=== PATIENT | female | born 1955 | race Caucasian/White ===

== ENCOUNTER 2017-07-23 02:27 | Inpatient (IN) | payer OTHER ==
[~2017-07-23] VITALS: Ht 162.6 cm; Wt 145.2 kg
[~2017-07-23 02:27] MED LIST: 8 HOUR650 MG PO; COLACE100 M1 PO; IRON325 M3 PO; MELOXICAM15 M1 PO; TRAMADOL HCL50 M1 PO; ZESTRIL20 M1 PO
--- NOTE | 2017-07-23 11:51 | Admission Core Measures ---
Acute Coronary Syndrome (CM) ACS Core Measures Acute Coronary Syndrome Diagnosis No Congestive Heart Failure (NEW) CHF Core Measures Congestive Heart Failure Diagnosis No Cerebrovascular Accident (NEW) CVA Core Measures CVA/TIA Diagnosis No Venous Thromboembolism VTE Core Brad (View Protocol) VTE Risk Factors Surgery No Mechanical VTE Prophylaxis d/t N/A MechProphylax Ordered No VTE Pharm Prophylaxis d/t NA PharmProphylax ordered Problem List As ranked by this Provider includes Assessment & Plan 1. Primary osteoarthritis of right knee HOME MEDS Home Med List Acetaminophen (8 Hour) 650 MG TABLET.ER 1 TAB PO PRN PAIN (Reported) Docusate Sodium (Colace) 100 MG CAPSULE 1 CAP PO DAILY STOOL SOFTENER ( Reported) Ferrous Sulfate (IRON) 325 MG (65 MG IRON) TABLET 1 TAB PO DAILY SUPPLEMENT ( Reported) Lisinopril (Zestril) 20 MG TABLET 2 TAB PO DAILY BP (Reported) Meloxicam 15 MG TABLET 1 TAB PO DAILY PAIN/INFLAMMATION (Reported) Tramadol HCl 50 MG TABLET 1 TAB PO Q6P PRN PAIN (Reported)
--- NOTE | 2017-07-23 11:55 | Surgical Discharge Summary ---
Visit Information Visit Dates Admission Date: 07/23/17 Discharge Date: 07/26/2017 History of Present Illness Chief Complaint: Right knee pain Surgical History Pertinent Surgical History: knee replacement (Right on 07/23/17) Review of Systems: Refer to H&P Hospital Course Course Attending Physician: Carlo Rose MD Primary Care Physician: Jazz Crabtree MD Hospital Course: Patient was admitted to the hospital for an elective total joint replacement. The procedure was tolerated well and patient was transferred to a general surgical floor. Diet was advanced and tolerated, and the patient voided spontaneously. The patient was evaluated and treated by physical therapy. At the time of hospital discharge, the vital signs were stable, neurovascular status was intact and pain was controlled with the use of oral pain medications. Allergies: Coded Allergies: celecoxib (From CELEBREX) (VOMITING 07/19/17) Significant Procedures: Right total knee replacement on 07/23/17 Disposition Summary Disposition Principal Diagnosis: Primary osteoarthritis, right knee Additional Diagnosis: S/p right total knee replacement Discharge Disposition: SNF Discharge Instructions General Discharge Information Code Status: Full Code Patient's Diet: Regular Patient's Activity: WBAT, RW as needed Follow-Up Instructions/Appts: Follow up in [address] Rose Medications at Discharge Discharge Medications: Stop taking the following medications: Meloxicam (Meloxicam) 15 MG TABLET ORAL DAILY Docusate Sodium (Colace) 100 MG CAPSULE ORAL DAILY Continue taking these medications: Lisinopril (Zestril) 20 MG TABLET 2 Tablet ORAL DAILY Tramadol HCl (Tramadol HCl) 50 MG TABLET 1 Tablet ORAL EVERY SIX HOURS NEEDED as needed for PAIN Acetaminophen (8 Hour) 650 MG TABLET.ER 1 Tablet ORAL EVERY SIX HOURS NEEDED as needed for MILD PAIN Instructions: DO NOT EXCEED 4GRAMS OF ACETAMINOPHEN PER DAY Ferrous Sulfate (IRON) 325 MG (65 MG IRON) TABLET 1 Tablet ORAL DAILY Start taking the following new medications: Apixaban (Eliquis) 2.5 MG TABLET 1 Tablet ORAL TWICE DAILY Qty = 60 No Refills Oxycodone HCl/Acetaminophen (Percocet 5-325 MG Tablet) 5 MG-325 MG TABLET 1-2 Tablet ORAL EVERY 4 HOURS NEEDED as needed for PAIN Qty = 30 No Refills Docusate Sodium (Docusate Sodium) 100 MG CAPSULE 1 Capsule ORAL TWICE DAILY Qty = 14 No Refills Polyethylene Glycol 3350 (Miralax) 17 GRAM/DOSE POWDER 1 Packet ORAL DAILY Qty = 7 No Refills Sennosides/Docusate Sodium (Senna Plus Tablet) 8.6 MG-50 MG TABLET 2 Tablet ORAL AT BEDTIME as needed for CONSTIPATION Qty = 14 No Refills
--- NOTE | 2017-07-23 13:07 | Operative Report ---
Operative/Inv Procedure Report Surgery Date: 07/23/17 Name of Procedure: Right total knee arthroplasty Pre-Operative Diagnosis: Primary osteoarthritis right knee Post-Operative Diagnosis: Same Estimated Blood Loss: less than 50ml Surgeon/Electric Hoist Operator: Milton CASILLAS,Carlo PANDYA Anesthesia: general endotracheal tube IV Fluids: See anesthesia record Implants: DepUY attune total knee system size 6 femur size 6 tibia 9 mm polyethylene and 32 patellar button Drains: None Specimens: Bone to pathology Tourniquet: 84 minutes Complications: None Condition: Stable Operative Indication: Patient's a 61-year-old female severe osteoarthritis and degenerative changes of the right knee. She failed conservative treatment is indicated for total knee arthroplasty. Risks and benefits the procedure discussed the patient detail and she wished to proceed. Skilled set hands was necessary provided by physician assistant county attorney Dakota Gtz weighted with assembly of the components as well as limb positioning and retraction due to the patient's morbid obesity second set of hands was absolutely necessary and crucial to the case. Operative/Procedure Note Note: Once informed consent was obtained and the correct limb was identified patient brought to operating room placed on table supine position. After administration of general endotracheal anesthesia patient's right leg had a thigh tourniquet placed, a Hansen catheter was placed in the right lower extremity is prepped and draped usual sterile fashion. To begin the procedure standard midline incision made for total knee arthroplasty. Surgeon was carried down through skin and subcutaneous tissue and fat. A medial parapatellar arthrotomy is performed and the patella was everted. The fat pad is removed from the patellar tendon. Patellar thickness was measured to be 25 mm and 10 mm's of bone was resected off the patella. Patella sized to be size 32 patella on the jig for the 32 patella was placed on patella and the lug holes were drilled. At this point patella was retracted laterally and protected and knee was placed in flexion. Z retractors were placed to protect the medial and lateral collateral ligaments. The lateral medial menisci were resected sharply with a knife. The cruciate ligaments were resected. The intrinsic canal of the femur was entered with a step drill and the intramedullary distal femoral cutting guide was placed. A plan resection of 10 mm's of bone off the distal femur and a 5 valgus cut was made. Once this was done the femur was sized and sized to be a size 6 femur. A size 6 4-in-1 cutting block was placed in the distal femur and anterior, posterior, chamfer cuts were made without complication. Next the cutting block was removed and the box cut guide was placed on the femur. Box cut was made for the posterior stabilized knee. At this point is insurance removed and we turned our attention to the tibia. Intramedullary canal of the tibia was identified and opened with a step drill. An intramedullary cutting guide for the tibia was placed down each medullary canal. A plan resection of 4 mm of bone off the lateral side of the knee was was done. This was passed off as specimen. The tibial was then sized to be a size 6 tibia. Trial reduction was done with a 6 tibia 6 femur and a 9 mm polyethylene insert. Knee had full extension and was stable to varus and valgus stress at 0 and 60. The patella was slightly lateral and so a lateral release performed to improve patellar tracking. The rotation of the tibial component was marked and the tibial component was pinned in place and the keel cut was made. Once this was done on insurance removed and composite removed and the knee was pulse lavaged. Cement was mixed on the back table. The components were then cemented in place with the tibial component cemented first followed by the femoral component and the patellar button. All excess cement cement was removed with curettes. The knee is placed in extension while cement hardened. Again the knee was taken through a range of motion found be stable. A 9 mm polyethylene insert was opened and locked onto the tibial tray. The knee was pulse lavaged the joint was released. Any bleeding was stopped with full electrocautery. The arthrotomy is closed with #1 Vicryl interrupted sutures and subcutaneous tissues closed #1 Vicryl and 2-0 Vicryl interrupted sutures and the skin was closed was greg. Sterile dressings applied patient was awakened taken recovery in stable fashion.
--- NOTE | 2017-07-23 14:51 | Cons- Medical ---
Zack Noe 07/23/17 1450: General Information and HPI Consulting Request Date of Consult: 07/23/17 Requested By: Milton CASILLAS,Carlo Porras Reason for Consult: Hypertension Source of Information: patient, family, old records Exam Limitations: no limitations History of Present Illness: Mrs. Magaña is a 62 yo lady with PMHx. of HTN, chronic back pain, OA presented to for elective Rt. knee replacement. Patient was seen and examined she didn't offer any complaint. Review of system was negative, no urinary symptoms. Allergies/Medications Allergies: Coded Allergies: celecoxib (From CELEBREX) (VOMITING 07/19/17) Home Med List: Acetaminophen (8 Hour) 650 MG TABLET.ER 1 TAB PO PRN PAIN (Reported) Docusate Sodium (Colace) 100 MG CAPSULE 1 CAP PO DAILY STOOL SOFTENER ( Reported) Ferrous Sulfate (IRON) 325 MG (65 MG IRON) TABLET 1 TAB PO DAILY SUPPLEMENT ( Reported) Lisinopril (Zestril) 20 MG TABLET 2 TAB PO DAILY BP (Reported) Meloxicam 15 MG TABLET 1 TAB PO DAILY PAIN/INFLAMMATION (Reported) Tramadol HCl 50 MG TABLET 1 TAB PO Q6P PRN PAIN (Reported) Current Medications: Current Medications Sig/Ricky Start time Last Medication Dose Route Stop Time Status Admin Acetaminophen 0 .STK-MED ONE 07/23 0911 DC PO Acetaminophen 650 MG ONCE 07/23 0000 DC PO 07/23 235 Apixaban 2.5 MG BID 07/24 1000 AC PO Celecoxib 400 MG DAILY 07/24 1000 CAN PO Dexamethasone 0 .STK-MED ONE 07/23 0911 DC .ROUTE Dexamethasone 10 MG ONCE 07/23 0000 DC IV 07/23 2359 Dextrose/Lactated 1,000 ML Q13H 07/23 1800 DC 07/23 Ringer's IV 1807 Docusate Sodium 100 MG BID 07/23 1030 AC PO Fentanyl Citrate 250 MCG .STK-MED ONE 07/23 1113 DC IM 07/23 111 Fentanyl Citrate 200 MCG .STK-MED ONE 07/23 0939 DC IM 07/23 0940 Gabapentin 0 .STK-MED ONE 07/23 0912 DC PO Gabapentin 300 MG ONCE 07/23 0000 DC PO 07/23 2359 Ketamine HCl 50 MG .STK-MED ONE 07/23 1113 DC IM 07/23 1114 Lisinopril 40 MG DAILY 07/23 1600 AC PO Midazolam HCl 2 MG .STK-MED ONE 07/23 0939 DC IM 07/23 0940 Morphine Sulfate 2 MG Q3P PRN 07/23 1800 DC IV Morphine Sulfate 4 MG Q3P PRN 07/23 1800 DC IV Ondansetron HCl 4 MG Q6 07/23 1030 AC 07/23 IV 2341 Ondansetron HCl 4 MG .STK-MED ONE 07/23 0939 DC IM 07/23 0940 Oxycodone HCl 10 MG ONCE 07/23 0000 DC PO 07/23 2359 Oxycodone/ 1 TAB Q4P PRN 07/23 1800 AC Acetaminophen PO Oxycodone/ 2 TAB Q4P PRN 07/23 1800 AC Acetaminophen PO Polyethylene Glycol 17 GM DAILY 07/23 1030 AC PO Ropivacaine 500 ML ONCE ONE 07/23 1045 DC ON-Q Ball 1 BAG INJ 07/23 1046 Scopolamine HBr 0 .STK-MED ONE 07/23 0911 DC TOP Scopolamine HBr 1 PAT ONCE 07/23 0000 DC TOP 07/23 2359 Senna/Docusate Sodium 2 TAB AT BEDTIME 07/23 1030 AC PO Tramadol HCl 50 MG Q4P PRN 07/23 2100 AC 07/23 PO 2107 Tranexamic Acid 2,000 MG .STK-MED ONE 07/23 0939 DC IV 07/23 0940 Vancomycin HCl 2,000 MG ONCE ONE 07/23 2200 CAN Dextrose/Water 250 ML IV 07/23 2259 Vancomycin HCl 2,000 MG 2200 07/23 2200 DC 07/23 Dextrose/Water 500 ML IV 07/23 2359 2134 Vancomycin HCl 2,000 MG ONCE 07/23 0000 DC Sodium Chloride 500 ML IV 07/23 2359 Past History Surgical History Surgical History: knee replacement (Right on 07/23/17) Psychosocial History Smoking Status: Unknown If Ever Smoked Exam & Diagnostic Data Last 24 Hrs of Vital Signs/I&O Vital Signs Date Time Temp Pulse Resp B/P B/P Pulse O2 O2 Flow FiO2 Mean Ox Delivery Rate 07/24 0635 98.4 72 20 112/70 98 Room Air 07/24 0409 98.4 72 20 112/70 98 Room Air 07/24 0036 98.2 64 20 130/80 96 Room Air 07/23 2206 98.6 81 20 138/80 94 04/04 2020 98.3 80 18 122/80 97 Room Air 07/23 1808 98.7 78 18 140/80 97 Room Air Intake & Output 07/24 0800 07/24 0000 07/23 1600 Intake Total 1105 1175 Output Total 1000 500 Balance 105 675 Intake, IV 625 375 Intake, Oral 480 800 Output, Urine 1000 500 Patient 320 lb Weight Last 24 Hrs of Labs/Alcides: Laboratory Tests 07/24/17 0715: Sodium Pending, Potassium Pending, Chloride Pending, Carbon Dioxide Pending, Anion Gap Pending, BUN Pending, Creatinine Pending, BUN/Creatinine Ratio Pending , CBC w Diff Pending, WBC Pending, RBC Pending, Hgb Pending, Hct Pending, MCV Pending, MCH Pending, MCHC Pending, RDW Pending, Plt Count Pending, MPV Pending Assessment/Plan Assessment/Plan Mrs. Magaña is a 62 yo lady with PMHx. of HTN, chronic back pain, OA presented to for elective knee replacement. Assessment and Plan: #S/P Rt. Knee replacement: Pain management per surgical team PT #Hx. of HTN: Currently is well controlled, continue her home med. Lisinopril DVT ppx Problem List: 1. Primary osteoarthritis of right knee Consult Acknowledgment - Thank you for your consult request. Filipe Bradley MD 07/23/17 1973: Assessment/Plan Consult Acknowledgment - Thank you for your consult request. Attending Review Statement Attending Statement Attending Statement: examined this patient, discussed with family, reviewed EMR data (avail), discussed with nursing, amended to note Attending Assessment/Plan: The patient is a 62 yo female with h/o obesity, HTN, chronic back pain, OA we were requested to see post operatively s/p right TKR today. In the PACU she was comfortable, alert and w/o complaints. BP was noted to be elevated at 170/80 and Lisinopril was given (her usual medication). She denied any chest pain, dyspnea, abdominal pain or other symptoms. As part of her pre-op medical evaluation with Dr. Rg she was noted to have asymptomatic bacteruria and was treated with an antibiotic. E coli is sensitive also to Ancef which patient is receiving maru -operatively for orthopedic procedure (as per written note in PACU, however Vanco listed on med list on floor?). She denied any fever, dysuria, frequency, back/pelvic pain, etc. Physical Exam: VS: T 98.6, P 68, R 16, BP 170/80, PO 98% RA in PACU HEENT: eyes- PERRLA, EOMI kinjal- moist mucosa, w/o lesions Neck: no JVD/bruits Chest: clear Cor: RRR nl S1, S2 w/o murm Abd: BS+, soft, NT, - HSM Ext: S/P Right TKR, no edema Impression/Plan: #S/P Right TKR- for OA- doing well post operatively in PACU. Plan: Post op care as per orthopedics. To begin Eliquis for DVT prophylaxis. #Essential HTN- BP was slightly elevated post op and given Lisinopril with decrease in BP. Plan: Continue Lisinopril and follow BP. #Asymptomatic Bacteruria- found on routine pre-op exam. No clinical evidence for infection. The patient stated she had received an antibiotic for this (?Ancef listed on written note in PACU, however Vanco listed on electronic record. Plan: No need to treat at present, however will monitor for any symptoms.
--- NOTE | 2017-07-23 16:11 | PN- Orthopedic ---
Subjective Subjective: POSTOP CHECK Patient reports pain is well controlled. Tolerating ice chips. Reports dry mouth and numbness in her right lower leg, which is improving. Offers no other complaints. Objective Vital Signs and I&Os Vitals - afebrile, BP 170/80, HR 68, RR 16, O2 sat 98% on RA Physical Exam: Gen - resting comfortably in PACU in NAD Lungs - CTAB Cardio- S1S2 noted Abd - soft, NT Ext - RLE dressing with kiet c/d/i, ice and onQ in place, moves all extremities, distal sensory and motor intact, soft compartment, alps in place, no edema or calf tenderness B/L Assessment/Plan Assessment/Plan 62 F POD 0 s/p R TKR, hypertensive postop PT eval, WBAT Advance to regular diet, IVF Postop op abx - vanco Pain regimen prn Antiemetics on board Home med on board - resume lisinopril now DVT ppx - eliquis bid in am, alps Encourage IS Dressing change POD2 D/c ceja in am Core Measures Venous Thromboembolism VTE Risk Factors Surgery No Mechanical VTE Prophylaxis d/t N/A MechProphylax Ordered No VTE Pharm Prophylaxis d/t NA PharmProphylax ordered
[2017-07-23 18:08] VITALS: BP 140/80
[2017-07-23 20:20] VITALS: BP 122/80
[2017-07-23 22:06] VITALS: BP 138/80
[2017-07-24 00:36] VITALS: BP 130/80
[2017-07-24 04:09] VITALS: BP 112/70
--- NOTE | 2017-07-24 07:26 | PN- Orthopedic ---
Subjective Subjective: No acute overnight events. No chest pain, shortness of breath, difficulty breathing. Nausea resolving. Pain controlled presently. Jade dc'd. Has yet to ambulate. Objective Vital Signs and I&Os Vital Signs Date Time Temp Pulse Resp B/P B/P Pulse O2 O2 Flow FiO2 Mean Ox Delivery Rate 07/24 408 98.4 72 20 112/70 98 Room Air 07/24 0036 98.2 64 20 130/80 96 Room Air 07/23 2206 98.6 81 20 138/80 94 07/23 2020 98.3 80 18 122/80 97 Room Air 07/23 1808 98.7 78 18 140/80 97 Room Air Intake & Output 07/24 0807/24 0000 07/23 1600 07/23 0807/23 0000 07/22 1600 Intake Total 1105 1175 Output Total 1000 500 Balance 105 675 Intake, IV 625 375 Intake, Oral 480 800 Output, Urine 1000 500 Patient 320 lb Weight Physical Exam: General: AAO x3, no distress Cards: RRR, s1s2 Pulm: C T A ABD: non-tender, non-distended Extremties: NeuroVascular intact. Dressing dry. On Q in place. Calves soft bilaterally. Assessment/Plan Assessment/Plan This is a 62 year old, POD 1, s/p R TKR -DC iv fluids Eliquis 2.5 bid for dvt ppx OOB, WBAT, Knee immobilzer if unstable Continue current pain regimen Anticipate dc to str in 3 days Will discuss with Dr. Laureano Core Measures Venous Thromboembolism VTE Risk Factors Surgery No Mechanical VTE Prophylaxis d/t N/A MechProphylax Ordered No VTE Pharm Prophylaxis d/t NA PharmProphylax ordered
[2017-07-24 07:35] VITALS: BP 112/70
[2017-07-24 08:21] LABS: ABSOLUTE BASOPHIL COUNT 0 /CUMM (0.0-0.2); ABSOLUTE EOSINOPHIL COUNT 0 /CUMM (0.0-0.7); ABSOLUTE GRANULOCYTE CT 7.4 /CUMM (1.4-6.5); ABSOLUTE LYMPH COUNT 1.2 /CUMM (1.2-3.4); ABSOLUTE MONOCYTE COUNT 0.7 /CUMM (0.10-0.60); BASOPHIL % 0.3 % (0.0-2.0); EOSINOPHIL % 0.1 % (0-5); GRANULOCYTE % 79.8 % (42.2-75.2); HEMATOCRIT 35.1 % (37-47); MEAN CORPUSCULAR HGB 31.2 PG (27.0-31.0); MEAN CORPUSCULAR HGB CONC 34.3 G/DL (33.0-37.0); MEAN CORPUSCULAR VOLUME 91.1 FL (81.0-99.0); MEAN PLATELET VOLUME 8.6 FL (7.4-10.4); PLATELET COUNT 164 /CUMM (130-400); RBC DISTRIBUTION WIDTH 12.8 % (11.5-14.5); RED BLOOD CELL CT 3.86 /CUMM (4.20-5.40); WHITE BLOOD CELL COUNT 9.3 /CUMM (4.8-10.8)
--- NOTE | 2017-07-24 08:32 | PN- Medicine Consult ---
[facility]32: Assessment/PlanMedical Consult Assessment/Plan Assessment: Mrs. Magaña is a 62 yo lady with PMHx. of HTN, chronic back pain, OA presented to for elective Rt. knee replacement. Today D1 Plan: Mrs. Magaña is a 62 yo lady with PMHx. of HTN, chronic back pain, OA presented to for elective knee replacement. Assessment and Plan: #S/P Rt. Knee replacement: * Pain management per surgical team * PT #Hx. of HTN: * Currently is well controlled, continue her home med. Lisinopril #DVT ppx: Aliquis 2.5mg BID #Throat itch: * Lozenges ordered Problem List: 1. Primary osteoarthritis of right knee 2. Knee joint replacement status Subjective Subjective: Patient seen and examined, offer no complaint except she has sore itch, she was requesting Lozenges. Vitals stable, no events over night, she walk to the bathroom with moderate pain. Review of Systems Constitutional: Reports: no symptoms. EENTM: Reports: no symptoms. Cardiovascular: Reports: no symptoms. Respiratory: Reports: no symptoms. Gastrointestinal: Reports: no symptoms. Genitourinary: Reports: no symptoms. Musculoskeletal: Reports: joint pain. Neurological/Psychological: Reports: no symptoms. Hematologic/Endocrine: Reports: no symptoms. Objective Last 24 Hrs of Vital Signs/I&O Vital Signs Date Time Temp Pulse Resp B/P B/P Pulse O2 O2 Flow FiO2 Mean Ox Delivery Rate 07/24 0735 98.4 72 20 112/70 98 Room Air 07/24 0409 98.4 72 20 112/70 98 Room Air 07/24 0036 98.2 64 20 130/80 96 Room Air 07/23 2206 98.6 81 20 138/80 94 07/23 2020 98.3 80 18 122/80 97 Room Air 07/23 1808 98.7 78 18 140/80 97 Room Air Intake & Output 07/24 1600 07/24 0800 07/24 0000 Intake Total 1105 1175 Output Total 1000 500 Balance 105 675 Intake, IV 625 375 Intake, Oral 480 800 Output, Urine 1000 500 Patient 320 lb Weight Physical Exam General Appearance: well developed/nourished, no apparent distress, alert, awake , comfortable Head: atraumatic, normal appearance Neck: normal inspection, supple, full range of motion Cardiovascular: regular rate/rhythm, normal peripheral pulses Respiratory: normal breath sounds, chest non-tender, no respiratory distress Abdomen: normal bowel sounds, soft, non-tender Extremities: normal inspection, no edema Current Medications: Current Medications Sig/Ricky Start time Last Medication Dose Route Stop Time Status Admin Acetaminophen 650 MG ONCE 07/23 0000 DC PO 07/23 2359 Apixaban 2.5 MG BID 07/24 1000 AC PO Celecoxib 400 MG DAILY 07/24 1000 CAN PO Dexamethasone 10 MG ONCE 07/23 0000 DC IV 07/23 2359 Dextrose/Lactated 1,000 ML Q13H 07/23 1800 DC 07/23 Ringer's IV 1807 Docusate Sodium 100 MG BID 07/23 1030 AC PO Fentanyl Citrate 250 MCG .STK-MED ONE 07/23 1113 DC IM 07/23 1114 Gabapentin 300 MG ONCE 07/23 0000 DC PO 07/23 2359 Ketamine HCl 50 MG .STK-MED ONE 07/23 1113 DC IM 07/23 1114 Lisinopril 40 MG DAILY 07/23 1600 AC PO Morphine Sulfate 2 MG Q3P PRN 07/23 1800 DC IV Morphine Sulfate 4 MG Q3P PRN 07/23 1800 DC IV Ondansetron HCl 4 MG Q6 07/23 1030 AC 07/23 IV 2341 Oxycodone HCl 10 MG ONCE 07/23 0000 DC PO 07/23 2359 Oxycodone/ 1 TAB Q4P PRN 07/23 1800 AC 07/24 Acetaminophen PO 1012 Oxycodone/ 2 TAB Q4P PRN 07/23 1800 AC Acetaminophen PO Polyethylene Glycol 17 GM DAILY 07/23 1030 AC PO Ropivacaine 500 ML ONCE ONE 07/23 1045 DC ON-Q Ball 1 BAG INJ 07/23 1046 Scopolamine HBr 1 PAT ONCE 07/23 0000 DC TOP 07/23 2359 Senna/Docusate Sodium 2 TAB AT BEDTIME 07/23 1030 AC PO Tramadol HCl 50 MG Q4P PRN 07/23 2100 AC 07/24 PO 0819 Vancomycin HCl 2,000 MG ONCE ONE 07/23 2200 CAN Dextrose/Water 250 ML IV 07/23 2259 Vancomycin HCl 2,000 MG 2200 07/23 2200 DC 07/23 Dextrose/Water 500 ML IV 07/23 2359 2134 Vancomycin HCl 2,000 MG ONCE 07/23 0000 DC Sodium Chloride 500 ML IV 07/23 5919 Results Last 24 Hrs Lab/Alcides Results: Laboratory Tests 07/24/17 0715: Anion Gap 9, Estimated GFR > 60, BUN/Creatinine Ratio 20.0, CBC w Diff NO MAN DIFF REQ, RBC 3.86 L, MCV 91.1, MCH 31.2 H, MCHC 34.3, RDW 12.8, MPV 8.6, Gran % 79.8 H, Lymphocytes % 12.7 L, Monocytes % 7.1, Eosinophils % 0.1, Basophils % 0.3, Absolute Granulocytes 7.4 H, Absolute Lymphocytes 1.2, Absolute Monocytes 0.7 H, Absolute Eosinophils 0, Absolute Basophils 0 Microbiology 07/23 1050 URINE ROUT: Urine Culture - RES Filipe Bradley MD 07/24/17 2142: Attending MD Review Statement Attending Sign Off Attending Cosign Statement: I have: examined this patient, reviewed aval EMR data, personally reviewd images, discussd w/resident/PA/CHUCK WAGON COOK, discussed mgmt plan w/pt, agreed w/resident/ PA/CHUCK WAGON COOK, amended to note. Other Findings: The patient was seen and discussed with resident. Agree with the plan of care as outlined.
[2017-07-24 14:33] VITALS: BP 110/70
[2017-07-24 21:58] VITALS: BP 130/70
[2017-07-25 06:57] VITALS: BP 130/72
--- NOTE | 2017-07-25 07:54 | PN- Orthopedic ---
Subjective Subjective: POD #2 s/p right TKR. Resting in bed. Fearful to void due to pain in right leg. Worked with PT yesterday, recommending STR upon discharge. Passing flatus , no BM yet. Objective Vital Signs and I&Os Vital Signs Date Time Temp Pulse Resp B/P B/P Pulse O2 O2 Flow FiO2 Mean Ox Delivery Rate / 0657 98.4 71 20 130/72 92 Room Air / 2158 98.9 72 20 130/70 98 Room Air 07/24 1435 Room Air 04/ 1433 99.3 72 18 110/70 98 Room Air 04/ 1021 72 112/70 Intake & Output 07/25 0807/25 0000 07/24 1600 07/24 0807/24 0000 07/23 1600 Intake Total 240 1105 1175 Output Total 200 1000 500 Balance 40 105 675 Intake, IV 625 375 Intake, Oral 240 480 800 Output, Urine 200 1000 500 Patient 320 lb Weight Physical Exam: Gen: AAOx3 in NAD Cor: S1+S2+ Lungs: CTA doris Abd: soft Ext: right lower extremity dressing removed, replaced. Incision C/D/I with greg. No surrounding erythema or ecchymosis. Able to dorsiflex/plantar flex. palpable DP pulse. Sensation/motor exam grossly intact. Current Medications: Current Medications Sig/Ricky Start time Last Medication Dose Route Stop Time Status Admin Apixaban 2.5 MG BID 07/24 1000 AC 07/24 PO 2139 Benzocaine/Menthol 1 JAKE Q2P PRN 07/24 1215 AC PO Bisacodyl 10 MG ONCE ONE 07/25 0800 UNVr RI 07/25 0801 Docusate Sodium 100 MG BID 07/23 1030 AC 04 PO 2139 Lisinopril 40 MG DAILY 07/23 1600 AC 07/24 PO 1021 Non-Formulary 0 SEE ADMIN CRITERIA 07/24 1215 CAN Medication ANY Ondansetron HCl 4 MG Q6 07/23 1030 AC 07/24 IV 1417 Oxycodone/ 1 TAB Q4P PRN 07/23 1800 AC 07/24 Acetaminophen PO 1012 Oxycodone/ 2 TAB Q4P PRN 07/23 1800 AC 07/25 Acetaminophen PO 0700 Patient Medication 1 ED ONE ONE 07/24 1045 DC 07/24 Teaching ED 07/24 1042020 Polyethylene Glycol 17 GM DAILY 07/23 1030 AC 07/24 PO 1021 Senna/Docusate Sodium 2 TAB AT BEDTIME 07/23 1030 AC 07/24 PO 2139 Tramadol HCl 50 MG Q4P PRN 07/23 2100 AC 07/24 PO 0819 Results Last 48 Hours of Labs: Laboratory Tests 07/24 07 Chemistry Sodium (137 - 145 mmol/L) 141 Potassium (3.5 - 5.1 mmol/L) 4.5 Chloride (98 - 107 mmol/L) 105 Carbon Dioxide (22 - 30 mmol/L) 27 Anion Gap (5 - 16) 9 BUN (7 - 17 mg/dL) 16 Creatinine (0.5 - 1.0 mg/dL) 0.8 Estimated GFR (>60 ml/min) > 60 BUN/Creatinine Ratio (7 - 25 %) 20.0 Hematology CBC w Diff NO MAN DIFF REQ WBC (4.8 - 10.8 /CUMM) 9.3 RBC (4.20 - 5.40 /CUMM) 3.86 L Hgb (12.0 - 16.0 G/DL) 12.1 Hct (37 - 47 %) 35.1 L MCV (81.0 - 99.0 FL) 91.1 MCH (27.0 - 31.0 PG) 31.2 H MCHC (33.0 - 37.0 G/DL) 34.3 RDW (11.5 - 14.5 %) 12.8 Plt Count (130 - 400 /CUMM) 164 MPV (7.4 - 10.4 FL) 8.6 Gran % (42.2 - 75.2 %) 79.8 H Lymphocytes % (20.5 - 51.1 %) 12.7 L Monocytes % (1.7 - 9.3 %) 7.1 Eosinophils % (0 - 5 %) 0.1 Basophils % (0.0 - 2.0 %) 0.3 Absolute Granulocytes (1.4 - 6.5 /CUMM) 7.4 H Absolute Lymphocytes (1.2 - 3.4 /CUMM) 1.2 Absolute Monocytes (0.10 - 0.60 /CUMM) 0.7 H Absolute Eosinophils (0.0 - 0.7 /CUMM) 0 Absolute Basophils (0.0 - 0.2 /CUMM) 0 Assessment/Plan Assessment/Plan A: POD #2 s/p right TKR; AVSS Plan: Must void this morning. Await BM. Dulcolax RI ordered. Continue Eliquis x 6 weeks post op. Onq pump removed. STR tomorrow. Core Measures Venous Thromboembolism VTE Risk Factors Surgery No Mechanical VTE Prophylaxis d/t N/A MechProphylax Ordered No VTE Pharm Prophylaxis d/t NA PharmProphylax ordered
--- NOTE | 2017-07-25 08:43 | PN- Medicine Consult ---
Zack Noe 07/25/17 0843: Assessment/PlanMedical Consult Assessment/Plan Assessment: Mrs. Magaña is a 62 yo lady with PMHx. of HTN, chronic back pain, OA presented to for elective Rt. knee replacement. Today D2 Plan: Mrs. Magaña is a 62 yo lady with PMHx. of HTN, chronic back pain, OA presented to for elective knee replacement. Assessment and Plan: #S/P Rt. Knee replacement: * Pain management per surgical team * PT #Hx. of HTN: * Currently is well controlled, continue her home med. Lisinopril #DVT ppx: Aliquis 2.5mg BID #Throat itch: * Lozenges ordered Problem List: 1. Knee joint replacement status Subjective Subjective: seen and examined stable, no events overnight Objective Last 24 Hrs of Vital Signs/I&O Vital Signs Date Time Temp Pulse Resp B/P B/P Pulse O2 O2 Flow FiO2 Mean Ox Delivery Rate 07/25 0848 130/72 04/ 0657 98.4 71 20 130/72 92 Room Air 04/ 2158 98.9 72 20 130/70 98 Room Air 04/05 1435 Room Air 04/ 1433 99.3 72 18 110/70 98 Room Air Intake & Output 07/25 1600 /06 0800 04/ 0000 Intake Total 250 240 Output Total 500 200 Balance -500 250 40 Intake, IV 10 Intake, Oral 240 240 Output, Urine 500 200 Current Medications: Current Medications Sig/Ricky Start time Last Medication Dose Route Stop Time Status Admin Apixaban 2.5 MG BID 07/24 1000 AC 07/25 PO 0848 Benzocaine/Menthol 1 JAKE Q2P PRN 07/24 1215 AC PO Bisacodyl 10 MG ONCE ONE 07/25 0800 DC NH 07/25 0801 Docusate Sodium 100 MG BID 07/23 1030 AC 07/25 PO 0848 Lisinopril 40 MG DAILY 07/23 1600 AC 07/25 PO 0848 Ondansetron HCl 4 MG Q6 07/23 1030 AC 04 IV 1417 Oxycodone/ 1 TAB Q4P PRN 07/23 1800 AC 07/24 Acetaminophen PO 1012 Oxycodone/ 2 TAB Q4P PRN 07/23 1800 AC 07/25 Acetaminophen PO 0949 Patient Medication 1 ED ONE ONE 07/25 1330 DC Teaching ED 07/25 1331 Polyethylene Glycol 17 GM DAILY 07/23 1030 AC 07/25 PO 0848 Senna/Docusate Sodium 2 TAB AT BEDTIME 07/23 1030 AC 07/24 PO 2139 Tramadol HCl 50 MG Q4P PRN 07/23 2100 AC 07/25 PO 1236 Results Last 24 Hrs Lab/Alcides Results: No labs Filipe Bradley MD 07/25/17 2213: Attending MD Review Statement Attending Sign Off Attending Cosign Statement: I have: examined this patient, reviewed [facility] EMR data, discussd w/resident/PA/ [employer]PERVISOR, discussed mgmt plan w/pt, agreed w/resident/PA/[employer]RAKE REPAIR SUPERVISOR, amended to note. Other Findings: The patient was seen and discussed with resident. Still with significant knee pain, otherwise doing well. Plan is for STR when able (going to [facility] [place] when able to be discharged).
--- NOTE | 2017-07-25 11:57 | RADIOLOGY REPORT ---
EXAMINATION: XR KNEE, RIGHT CLINICAL INFORMATION: Status post right total knee arthroplasty COMPARISON: None TECHNIQUE: 2 views of the right knee. FINDINGS: The patient is status post cemented total right knee arthroplasty. Components are in expected alignment and orientation. No periprosthetic fracture visualized. Diffuse subcutaneous edema. Postsurgical subcutaneous emphysema and skin greg. IMPRESSION: Unremarkable post total knee radiographs of the right knee.
[2017-07-25 14:31] VITALS: BP 130/85
[2017-07-25 14:43] VITALS: BP 130/85
[2017-07-25 22:28] VITALS: BP 120/70
[2017-07-26 06:54] VITALS: BP 118/68
--- NOTE | 2017-07-26 08:23 | PN- Orthopedic ---
See Addendum Subjective Subjective: No acute events overnight. Pt is doing well. Pain is reasonably controlled, but she does feel somewhat limited with weight bearing due to pain. This has still be requiring intermittent (but not frequent) use of morphine IV. Otherwise tolerating po and voiding well. +BM yesterday. Denies headache, dizziness, chest pain, shortness of breath. Objective Vital Signs and I&Os Vital Signs Date Time Temp Pulse Resp B/P B/P Pulse O2 O2 Flow FiO2 Mean Ox Delivery Rate 07/26 0554 99.2 76 18 118/68 94 Room Air 07/25 2228 100.0 85 20 120/70 96 07/25 1443 98.9 117 18 130/85 94 Room Air 07/25 0848 130/72 Intake & Output 07/26 1600 07/26 0800 07/26 0000 07/25 1600 07/25 0800 07/25 0000 Intake Total 0 350 250 240 Output Total 400 500 200 Balance 0 -50 -500 250 40 Intake, IV 10 Intake, Oral 0 350 240 240 Number 1 Bowel Movements Output, Urine 400 500 200 Physical Exam: Gen.: Patient is awake and alert. No acute distress. Cardiac: Regular Pulmonary: Lungs are clear bilaterally. Extremities: The right knee incision is clean, dry, and intact with greg in place. There are some mild periincisional ecchymosis, but no significant surrounding erythema. Lower extremity sensation is intact. No calf tenderness appreciated bilaterally. Strength of dorsiflexion and plantarflexion in the right are 5 out of 5. Assessment/Plan Assessment/Plan Patient is a 62-year-old female with history of hypertension, who is now postoperative day #3 status post right total knee arthroplasty. She remained stable from a surgical standpoint. Plan: -Continue Eliquis with for DVT prophylaxis. -Percocet as needed for pain control. -Bowel regimen with Colace [id number] while using pain meds. -Continue physical therapy for mobilization. Patient may weight-bear as tolerated with rolling walker progress per PT recommendations. -Dry dressing change once daily. -Discharge to short-term rehabilitation today. Follow-up with Dr. Rose for staple removal in 2 weeks. Core Measures Venous Thromboembolism VTE Risk Factors Surgery No Mechanical VTE Prophylaxis d/t N/A MechProphylax Ordered No VTE Pharm Prophylaxis d/t NA PharmProphylax ordered
[2017-07-26] MEDS ORDERED: SENNA PLUS TAB1 EACH PO (08:30)
[2017-07-26] MEDS ORDERED: DOCUSATE SODIU100 M3 PO (08:30)
[2017-07-26] MEDS ORDERED: MIRALAX119 GM PO (08:30)
[2017-07-26] MEDS ORDERED: PERCOCET 5-3251 EACH PO (08:30)
[2017-07-26] MEDS ORDERED: ELIQUIS2.5 M1 PO (08:30)
--- NOTE | 2017-07-26 08:35 | Patient Discharge Instructions ---
Discharge Instructions General Discharge Information You were seen/treated for: Right knee DJD/osteoarthritis You had these procedures: Right total knee arthroplasty Watch for these problems: Fever greater than 101, drainage from the incision site, chest pain, shortness of breath, inability to bear weight on the operative side. Call Surgeon to remove: [place] (2 WEEKS POSTOP) Do not soak the wound: Yes Daily wet to dry dressings: No No bath, but you may shower: Yes Other wound care: Dry dressing change once daily Diet Continue normal diet: Yes Recommended Diet: Regular Activity Full Activity/No Limits: No Activity Self Limited: Yes Pounds, do NOT lift more than: 5 Activity Limited to: Weight bear as tolerated Other activity limits: Patient may ambulate and weight-bear as tolerated with rolling walker. Progress per PT recommendations. No strenuous activity or heavy lifting, pushing, or pulling. No driving until cleared by M.D. Acute Coronary Syndrome Inclusion Criteria At DC or during hospital stay patient has or had the following: ACS DIAGNOSIS No Discharge Core Measures Meds if any: Prescribed or Continued at Discharge Meds if any: NOT Prescribed or Continued at Discharge Congestive Heart Failure Inclusion Criteria At DC or during hospital stay patient has or had the following: CHF DIAGNOSIS No Discharge Core Measures Meds if any: Prescribed or Continued at Discharge Meds if any: NOT Prescribed or Continued at Discharge Cerebrovascular accident Inclusion Criteria At DC or during hospital stay patient has or had the following: CVA/TIA Diagnosis No Discharge Core Measures Meds if any: Prescribed or Continued at Discharge Meds if any: NOT Prescribed or Continued at Discharge Venous thromboembolism Inclusion Criteria VTE Diagnosis No VTE Type NONE VTE Confirmed by (Test) NONE Discharge Core Measures - Per Current guidelines, there needs to be overlap - treatment for the first 5 days of Warfarin therapy. - If discharged on Warfarin prior to 5 days of - overlap therapy, the patient will need to be - assessed for post discharge needs including - *Post discharge parental anticoagulation - *Warfarin and/or parental anticoagulation education - *Follow up date to check INR post discharge At least 5 days overlap therapy as Inpatient No Meds if any: Prescribed or Continued at Discharge Note: Overlap Therapy is Warfarin and Anticoagulant Meds if any: NOT Prescribed or Continued at Discharge
[2017-07-26 10:27] VITALS: BP 118/68
== END 2017-07-26 11:10 | DRG 470 ==
LOC: SDA 02:27 → ENRESERV 16:55 → ENTRNSPT 17:31 → EDTRNSPTSTS 17:33 → 2NA 17:50 → CMPTRNSPT 18:34 → ENPENDDIS 07-26 08:35 → 2NA 07-26 11:10
PROVIDERS: Physician Assistant Surgical
PROC: 0SRC0J9 Replacement of Right Knee Joint with Synthetic Substitute, Cemented, Open Approach (ICD-10-PCS; principal; 2017-07-23)
PROC: 3E0T3BZ Introduction of Anesthetic Agent into Peripheral Nerves and Plexi, Percutaneous Approach (ICD-10-PCS; 2017-07-23)
DX: M17.11 Unilateral primary osteoarthritis, right knee (principal); E66.01 Morbid (severe) obesity due to excess calories; Z68.43 Body mass index [BMI] 50.0-59.9, adult; I10 Essential (primary) hypertension; G89.29 Other chronic pain; M54.5 Low back pain; G62.9 Polyneuropathy, unspecified; Z87.891 Personal history of nicotine dependence; Z96.652 Presence of left artificial knee joint; Z96.642 Presence of left artificial hip joint; Z86.711 Personal history of pulmonary embolism; Z88.8 Allergy status to other drugs, medicaments and biological substances
CPT/HCPCS: 2NAP; 36415; 36592; 73560-RT; 82436; 87086; 88305; 97110-GO; 97116-GO; 97161-GP; 97530-GO; C1713; J1100; J1885; J2405; J2795; J3370; J7040; J7060